=== PATIENT | female | born 1985 | race Caucasian/White ===

== ENCOUNTER 2016-08-02 14:49 | Inpatient (IN) | payer OTHER ==
[~2016-08-02] VITALS: Ht 152.4 cm; Wt 82.6 kg
[~2016-08-02 14:49] MED LIST: BACTRIM DS1 TAB PO; NO HOME MEDS; TESSALON PER100 MG PO; ZPAK PO
[2016-08-02] MEDS ORDERED: PRENATA4 PO (15:07)
[2016-08-03] VITALS (10 sets, daily range): BP systolic 96–130; BP diastolic 56–80
--- NOTE | 2016-08-03 00:25 | NUR ---
ARRIVAL TO OB UNIT ACCOMPANIED BY FAMILY, FOR SCHEDULED REPEAT C- SECTION. ORIENTED TO ROOM AND CALL SYSTEM. PLAN OF CARE FOR ADMISSION DISCUEED WITH PATIENT AND AGREED UPON. PATIENT HAS HISTORY OF IV DRUG USE AND HEPATITIS C , FOR WHICH SHE WILL SEEK TREATMENT AFTER DELIVERY. UNDERSTANDS NEED TO OBTAIN URINE AND MECOMIUM SAMPLES FROM , AND THAT DCF WILL BE NOTIFIED.
--- NOTE | 2016-08-03 00:55 | NUR ---
IV INITIATED IN RT FOREARM X 1 ATTEMPT. PATIENT TOLERATED WELL.
--- NOTE | 2016-08-03 01:00 | NUR ---
FHR CHANGE IN BASELINE FROM 145- 125 WITH GOOD VARIABILITY, ACCELERATIONS. CONTRACTIONS Q 7-12 MINUTES. PATIENT UNAWARE.
--- NOTE | 2016-08-03 01:30 | NUR ---
BASELINE FHR 115-125 WITH MODERATE VARIABLILITY AND ACCLERATIONS. INTERMITTENT LATE DECELERATIONS. PATIENT TURNED TO LEFT SIDE. IV INFUSING PER ORDERS. MILD CONTRACTIONS Q 3- 10 MINUTES, LASTING 40-60 SECONDS. PATIENT UNAWARE.
--- NOTE | 2016-08-03 02:00 | NUR ---
FHR 115-125 WITH MODERATE VARIABILITY. ACCELERATIONS PRESENT. NO DECELERATIONS NOTED. NO CONTRACTIONS AT THIS TIME.
--- NOTE | 2016-08-03 02:30 | NUR ---
FHR 115-125 WITH MODERATE VARIABLILITY, INTERMITTENT LATE DECLERATIONS, ACCELERATIONS PRESENT. JOLLY MILDLY Q 7 MINUTES. PATIENT SLEEPING. SOIDE RAILS UP X 2. CALL CORTEZ WITHIN REACH.
--- NOTE | 2016-08-03 03:00 | NUR ---
CHANGE IN FHR BASELINE FROM 120 TO 110 WITH MODERATE VARIABLITY, INTERMITTENT LATES. CONTRACTINS Q 12 MINUTES, MILD TO PALPATION.
--- NOTE | 2016-08-03 03:30 | NUR ---
FHR 115-125 WITH MODERATE VARIABLTY, ACCLERATIONS PRESENT, INTERMITTENT LATE DECELERATIONS PERSIST. CONTRACTIONS Q 7-12 MINUTES, MILD TO PALPATION.
--- NOTE | 2016-08-03 04:00 | NUR ---
FHR 120 WITH MODERATE VARIABILITY, ACCLERATIONS PRESENT, NO DECELERATIONS NOTED. CONTRACTIONS Q 10-12 MINUTES, MILD TO PALPATION.
--- NOTE | 2016-08-03 04:30 | NUR ---
FHR 115-120, MODERATE VARIABILITY, ISOLATED LATE DECELERATION, ACCELERATIONS PRESENT. AUDIBLE MOVEMENT. CONTRACTIONS Q 7-9 MINUTES, LASTING 50-70 SECONDS, PALPATING MILDLY.
--- NOTE | 2016-08-03 05:00 | NUR ---
FHR 115-125, MODERATE VARIABILITY, ACCELERATIONS PRESENT, NO DECLERATIONS NOTED. X2 CONTRACTIONS NOTED IN LAST 30 MINUTES, PATIENT UNAWARE.
--- NOTE | 2016-08-03 05:30 | NUR ---
PATIENT SLEEPING, UNAWARE OF UTERINE ACTIVITY.
--- NOTE | 2016-08-03 05:30 | NUR ---
FHR 115-125 WITH ACCELERATIONS PESENT. NO DECELRATIONS NOTED. X 3 CONTRACTIONS IN LAST 30 MINUTES, LASTING 50-75 SECONDS, PATIENT SLEEOING AND UNAWARE.
--- NOTE | 2016-08-03 06:00 | NUR ---
FHR 115-125 WITH MODERATE VARIABILITY, ACCELERATIONS PRESENT. INTERMITTENT PERIODIC VARIABLE DECELERATIONS, LASTING 50-80 SECONDS, LOW 95 BPM, WITH RETURN TO BASELINE. CONTRACTIONS Q 5-9 MINUTES, 50-90 SECONDS IN DURATION, PATIENT REMAINS UNAWARE.
--- NOTE | 2016-08-03 06:30 | NUR ---
FHR 120 WITH MODERATE VARIABILITY, ACCELERATIONS PRESENT, NO DECELERATIONS NOTED. CONTRACTIONS Q 9-12 MINUTES, LASTING 60-90 SECONDS, PATIENT UNAWARE.
--- NOTE | 2016-08-03 07:01 | NUR ---
RECEIVED REPORT FROM PRIOR SHIFT ON PATIENT.
--- NOTE | 2016-08-03 07:01 | NUR ---
DR. MCFARLAND AT BEDSIDE. REVIEWED MONITOR STRIP. NO CHANGES IN PLAN OF CARE.
--- NOTE | 2016-08-03 07:06 | NUR ---
Patient up to bathroom at this time. heart rate of 125. Moderate variability. Good accels. No decels noted at this time.
--- NOTE | 2016-08-03 07:30 | NUR ---
ASSESSMENT DONE AND COMPLETED ON PATIENT. PATIENT UP TO BATHROOM, VOIDED, AND BAG OF LR AT 125CC/HR UP AND INFUSING. PATIENT DENIES NO PAIN. HEART RATE OF 125. MODERATE VARIABILITY. GOOD ACCELS. NO DECELS NOTED. WILL CONTINUE TO MONITOR. WEIGHT OBTAINED. VITALS DONE. PREPARATION FOR C/SECTION DONE.
--- NOTE | 2016-08-03 07:40 | NUR ---
Contractions noted ever 4 to 6 minutes lasting 10 to 60 seconds in duration. Patient states that she is not feeling contractions at this point. Will continue to monitor.
--- NOTE | 2016-08-03 08:10 | NUR ---
Patient in room resting with sister to bedside. heart rate of 125. No contractions seen or palpated.
--- NOTE | 2016-08-03 08:30 | NUR ---
Patient explained that she will be going to main OR for surgery. Patient verbalized understanding of such and that noone will be allowed in main OR. Patient explained to her and sister that patient will go to recovery and then return to room up her. Patient will be transferred to Room 206.
--- NOTE | 2016-08-03 08:30 | NUR ---
Or staff in room verifying patient identity.
--- NOTE | 2016-08-03 08:45 | NUR ---
Reglan 10mg iv given, Pepcid 20mg iv given.
--- NOTE | 2016-08-03 09:06 | NUR ---
Contractions occuring every 6 to 8 minutes lasting 60 seconds in duration. Patient denies feeling contractions.
--- NOTE | 2016-08-03 09:30 | NUR ---
Patient to go to main OR via stretcher. IV fluids infusing well with no difficulty. Patient remains NPO status.
--- NOTE | 2016-08-03 11:40 | NUR ---
Patient to room via OR staff. Patient in room via stretcher. Girard catheter in situ. SCDs in place. Moderate lochia, fundus one below umbilicus. Patient voices no concern at present moment. Pain level of 0 on scale of 1 to 10.
--- NOTE | 2016-08-03 12:02 | NUR ---
Cytotec 200mg by mouth given as ordered.
--- NOTE | 2016-08-03 14:37 | NUR ---
Patient up in bed holding preparation to breastfeed. Vitals stable.
--- NOTE | 2016-08-03 15:01 | NUR ---
patient in room in no distress at present moment.
--- NOTE | 2016-08-03 15:06 | NUR ---
Patient states she feel some discomfort to incisional area. Toradol 30mg iv given.
--- NOTE | 2016-08-03 16:07 | NUR ---
Ancef 2 gm ivpb given as ordered.
--- NOTE | 2016-08-03 16:33 | NUR ---
Patient ambulated to bathroom. Girard discontinued.
--- NOTE | 2016-08-03 17:47 | NUR ---
Patient resting comfortably in no distress at present moment.
--- NOTE | 2016-08-03 18:40 | NUR ---
REPORT RECEIVED FROM Kevin RAMSEY RN. BEDSIDE REPORTING COMPLETED. PATIENT SITTING AT SIDE OF BED, FAMILY AT BEDSIDE. REPORTS PAIN SCALE OF 5/10, BUT DECLINES MEDICATIONS AT THIS TIME.
--- NOTE | 2016-08-03 22:00 | NUR ---
PULSE OXIMETRY DISCONTINUED PER ORDERS. PATIENT AMBULATING IN ROOM WITHOUT DISTRESS.
--- NOTE | 2016-08-03 22:27 | NUR ---
VOIDING SMALL-MODERATE AMOUNTS CLEAR YELLOW URINE WITHOUT DIFFICULTY.
--- NOTE | 2016-08-03 23:14 | NUR ---
ASSESSMENT COMPLETED. NO BLADDER DISTENTION OR FUNDAL DISPLACEMENT NOTED. NO FURTHER CLINICAL NEEDS IDENTIFIED AT THIS TIME.
--- NOTE | 2016-08-04 03:00 | NUR ---
VS STABLE. VOIDING SMALL TO MODERATE AMOUNTS URINE WITHOUT DIFFICULTY. DENIES NEEDS AT THIS TIME.
[2016-08-04 03:25] VITALS: BP 103/66
[2016-08-04 05:45] VITALS: BP 109/58
--- NOTE | 2016-08-04 06:00 | NUR ---
REPORT PREPARED FOR ONCOMING SHIFT.
[2016-08-04 06:04] LABS: HEMATOCRIT 31.6 % (37.0-47.0); HEMOGLOBIN 11.2 g/dl (12.0-16.0); IMMATURE GRANULOCYTES 1.1 % (0.0-1.0); MEAN CORPUSCULAR HGB 31.9 pG CALC (26.0-32.0); MEAN CORPUSCULAR HGB CONC 35.4 g/L CALC (32.0-36.0); NEUT# 6.99 thou/uL (2.00-7.15); RED BLOOD COUNT 3.51 mill/uL (4.20-5.60); RED CELL DISTRI WIDTH 13.2 % (11.5-15.5)
--- NOTE | 2016-08-04 06:45 | NUR ---
REPORT FORM PRIOR SHIFT ON PATIENT.
--- NOTE | 2016-08-04 07:20 | NUR ---
PATIENT RESTING IN NO DISTRESS AT PRESENT.
[2016-08-04 08:00] VITALS: BP 114/68
--- NOTE | 2016-08-04 09:16 | NUR ---
IV discontinued. Patient in bed resting and getting ready to eat breakfast soon.
[2016-08-04 12:00] VITALS: BP 114/68
--- NOTE | 2016-08-04 12:14 | NUR ---
Pain level of 6 on scale of 1 to 10. Lortab one tablet by mouth given.
--- NOTE | 2016-08-04 13:30 | NUR ---
Pain level of o on scale of 1 to 10.
--- NOTE | 2016-08-04 15:34 | NUR ---
Dr. Baum to come in later to discharge patient.
--- NOTE | 2016-08-04 15:34 | NUR ---
Dr. Baum called and notified of patient's desire to be discharged to home.
--- NOTE | 2016-08-04 16:01 | NUR ---
Pain level of 5 on scale of 1 to 10. Motrin 600mg by mouth given.
[2016-08-04 16:33] VITALS: BP 113/77
--- NOTE | 2016-08-04 16:50 | NUR ---
DR. MCFARLAND ON UNIT ORDER FOR DISCHARGE TO HOME.
[2016-08-04] MEDS ORDERED: IBUPROFEN600 MG PO (16:59)
--- NOTE | 2016-08-04 17:00 | NUR ---
TDAP IM GIVEN AND PNEUMONIA VACCINE GIVEN.
[2016-08-04] MEDS ORDERED: LORTAB 7.57.5 MG PO (17:01)
--- NOTE | 2016-08-04 17:12 | NUR ---
PATIENT STATES SHE WANTS TO GO TO SMOKE AND IS GOING DOWNSTAIRS. PATIENT ADVISED THAT DR. MCFARLAND DOES NOT APPROVE OF HIS PATIENT'S LEAVING THE UNIT WHILE IN PATIENT AND IF SHE DOES GO DOWNSTAIRS SHE WILL BE DISCHARGED AND STAFF WILL NOT BE ABLE TO MEDICATE HER. PATIENT VERBALIZED UNDERSTANDING OF SUCH.
== END 2016-08-04 17:12 | disposition home or self-care (01) | DRG 765 ==
LOC: OB 08-03 00:12
PROVIDERS: ADMIT Obstetrics & Gynecology; ATTEND Obstetrics & Gynecology
PROC: 10D00Z1 Extraction of Products of Conception, Low, Open Approach (ICD-10-PCS; principal; 2016-08-03)
DX: O34.211 Maternal care for low transverse scar from previous cesarean delivery (principal); O98.42 Viral hepatitis complicating childbirth; N85.8 Other specified noninflammatory disorders of uterus; O99.334 Smoking (tobacco) complicating childbirth; F17.210 Nicotine dependence, cigarettes, uncomplicated; B19.20 Unspecified viral hepatitis C without hepatic coma; Z3A.39 39 weeks gestation of pregnancy; Z37.0 Single live birth
CPT/HCPCS: J2270

== ENCOUNTER 2020-09-15 03:15 | Emergency (ER) | payer SELFPAY ==
[~2020-09-15] VITALS: Ht 165.1 cm; Wt 61.0 kg
[~2020-09-15 03:15] MED LIST changes: +IBUPROFEN600 MG PO; +LORTAB 7.57.5 MG PO; +PRENATA4 PO
[2020-09-15 03:25] VITALS: BP 128/78
[2020-09-15] MEDS ORDERED: DIPHENHYDRAM50 M2 PO (04:07)
[2020-09-15] MEDS ORDERED: GENTAMICIN0.3 % OU (04:07)
== END 2020-09-15 07:19 | disposition home or self-care (01) | DRG 607 ==
LOC: ED 03:15
DX: R21 Rash and other nonspecific skin eruption (principal); H10.9 Unspecified conjunctivitis; F17.200 Nicotine dependence, unspecified, uncomplicated